=== PATIENT | female | born 1995 | race Caucasian/White ===

== ENCOUNTER 2022-10-14 01:24 | Outpatient (CLI) | payer BC, SELFPAY ==
--- NOTE | 2022-10-14 09:15 | DI.MRI_ITS ---
Exam(s) MR LOWER JOINT RT WO EXAM: MR LOWER JOINT RT WO CLINICAL HISTORY: RT PATELLOFEMORAL SYNDROME, M22.2X1; RT KNEE EFFUSION, M25.561. TECHNIQUE: Multiplanar multisequence MRI was performed. COMPARISON: CR XR KNEE 4 VIEW RIGHT from 08/04/2022 FINDINGS: BONES: There is no fracture or contusion pattern. JOINTS: Articular cartilage is unremarkable. There is a moderate joint effusion. TENDONS: Extensor mechanism: Unremarkable. Medial retinaculum: Unremarkable. Lateral retinaculum: Unremarkable. Popliteus: Unremarkable. MUSCLES: Unremarkable. MENISCI: The medial meniscus is unremarkable. The lateral meniscus is unremarkable. SOFT TISSUES: Unremarkable. LIGAMENTS: Anterior Cruciate: The patient has an intact ACL repair. Posterior Cruciate: Unremarkable. Medial Collateral:Unremarkable. Lateral Collateral: Unremarkable. OTHER: IMPRESSION: 1. The articular cartilage is unremarkable. 2. There is no evidence of a meniscal or ligament tear. 3. Moderate joint effusion. 4. Intact ACL repair. DATA REPOSITORY:
== END 2022-10-14 01:44 ==
PROVIDERS: PCP Registered Nurse; Visit Provider Physician Assistant
DX: M25.561 Pain in right knee (principal); M25.461 Effusion, right knee; M22.2X1 Patellofemoral disorders, right knee; Z98.890 Other specified postprocedural states
CPT/HCPCS: 73721